=== PATIENT | female | born 1955 | race Caucasian/White ===

== ENCOUNTER → 2021-09-13 | Outpatient (CLI) | payer OTHER ==
[~2021-09-13] VITALS: Ht 154.9 cm; Wt 54.7 kg
[~2021-09-13] MED LIST: ASPIRIN 81M81 MG/TA2 PO; CALCIUM 600 PLU1 TAB PO; CRESTOR20 MG PO; PEPCID 20MG TAB20 MG PO
[2021-09-13 12:21] VITALS: BP 130/77; PULSE 105; TEMP 98
[2021-09-13 13:15] VITALS: BP 131/80; PULSE 93
== END ==
LOC: COL.RAD 12:05
DX: E04.1 Nontoxic single thyroid nodule (principal)
CPT/HCPCS: 32106

== ENCOUNTER → 2021-11-28 | Outpatient (CLI) | payer OTHER | LOC: COL.LAB 10:43 | DX: E06.9 Thyroiditis, unspecified (principal) ==